=== PATIENT | female | born 1945 | race Caucasian/White ===

== ENCOUNTER 2019-09-25 16:17 | Observation (INO) | payer BC, MEDICARE, OTHER ==
[~2019-09-25] VITALS: Ht 170.2 cm; Wt 85.4 kg
--- NOTE | 2019-09-25 16:37 | NUR ---
bib by cynthia from [facility] half-way. She has been unable to care for basic needs and therfore sent here. Recently moved to area. Also recently dx with uti at [facility] Wheelchair bound x 15 years afebrile, vss, a+ox4 SW to bedside
[2019-09-25] MEDS ORDERED: CEFDINIR 300 MG CAPSULE PO ONE (17:00)
[2019-09-25] MEDS ORDERED: SODIUM CHLORIDE 0.9% 1,000 ML IV ONE (17:11)
--- NOTE | 2019-09-25 17:19 | NUR ---
RADIOLOGY AT BEDSIDE
[2019-09-25] MEDS ORDERED: SODIUM CHLORIDE FLUSH 10ML SYR IVF ONE (17:30)
[2019-09-25 17:55] LABS: ALANINE AMINOTRANSFERASE 21 U/L (12-78); ANION GAP 5 mmol/L (5-15); CALCIUM 8.3 mg/dL (8.5-10.1); CHLORIDE 111 mmol/L (98-107); CREATININE 1.04 mg/dL (0.55-1.02)
[2019-09-25 18:05] LABS: ALKALINE PHOSPHATASE 49 U/L (45-117); BILIRUBIN,TOTAL 0.2 mg/dL (0.2-1.0); TOTAL PROTEIN 6.7 g/dL (6.4-8.2)
--- NOTE | 2019-09-25 18:11 | NUR ---
clean catch ua obtained walked to lab piv placed provided [facility] dinner meal tray
[2019-09-25] MEDS ORDERED: CEFDINIR 300 MG CAPSULE ONE (18:17)
[2019-09-25 18:24] LABS: MICROSCOPIC INDICATED
[2019-09-25 18:51] LABS: BASOPHILS # (AUTO) 0.02 x10^3/uL (0-0.1); BASOPHILS % (AUTO) 0 % (0-1); EOSINOPHILS # (AUTO) 0.23 x10^3/uL (0-0.4); EOSINOPHILS % (AUTO) 3 % (1-7); LYMPHOCYTES # (AUTO) 1.69 x10^3/uL (1-3.4); LYMPHOCYTES % (AUTO) 19 % (22-44); MD NO; MEAN CORPUSCULAR HEMOGLOBIN 25.9 pg (27.0-34.8); MEAN CORPUSCULAR HGB CONC 31.6 g/dL (32.4-35.8); MEAN CORPUSCULAR VOLUME 81.8 fL (80-100); MEAN PLATELET VOLUME 10.1 fL (7.4-10.4); MONOCYTES # (AUTO) 0.57 x10^3/uL (0.2-0.8); MONOCYTES % (AUTO) 6 % (2-9); NEUTROPHILS # (AUTO) 6.41 x10^3/uL (1.8-6.8); NEUTROPHILS % (AUTO) 72 % (42-75); PLATELET COUNT 220 x10^3/uL (130-400); RED BLOOD COUNT 3.85 x10^6/uL (3.82-5.3); RED CELL DISTRIBUTION WIDTH 15.4 % (9.6-15.2)
[2019-09-25] MEDS ORDERED: NYST15CR TP (18:53)
[2019-09-25] MEDS ORDERED: DABI150C PO (18:53)
[2019-09-25] MEDS ORDERED: TROS20TA2 PO (18:53)
[2019-09-25] MEDS ORDERED: ALBU8.5H8 INH (18:53)
[2019-09-25] MEDS ORDERED: FLUT1DIS3 INH (18:53)
[2019-09-25] MEDS ORDERED: AMLO2.5T5 PO (18:53)
[2019-09-25] MEDS ORDERED: MELA5TAB14 PO (18:53)
[2019-09-25] MEDS ORDERED: TIOT18CA INH (18:53)
[2019-09-25] MEDS ORDERED: SODIUM CHLORIDE 0.9% 1,000 ML IV SCH (19:12)
[2019-09-25] MEDS ORDERED: TEMAZEPAM 15 MG CAPSULE PO PRN (19:30)
[2019-09-25] MEDS ORDERED: ONDANSETRON 2MG/ML, 2ML IVPush PRN (19:30)
[2019-09-25] MEDS ORDERED: ALBUTEROL SULFATE 2.5 MG/3 ML NPPB PRN (19:30)
[2019-09-25] MEDS ORDERED: METHOCARBAMOL 500 MG TABLET PO PRN (19:30)
[2019-09-25] MEDS ORDERED: hydrALAzine 20 MG/ML, 1ML IVPush PRN (19:30)
[2019-09-25] MEDS ORDERED: GUAIFENESIN/DM 200-20MG, 10ML UDC PO PRN (19:30)
[2019-09-25] MEDS ORDERED: morphine SULFATE 10 MG/ML, 1ML IVPush PRN (19:30)
[2019-09-25] MEDS ORDERED: ALBUTEROL HFA 90 MCG/SPRAY INH PRN (19:30)
[2019-09-25] MEDS ORDERED: DOCUSATE 100 MG CAPSULE PO PRN (19:30)
[2019-09-25] MEDS ORDERED: ASA/APAP/ CAFFEINE TABLET PO PRN (19:30)
[2019-09-25] MEDS ORDERED: ACETAMINOPHEN 325 MG TABLET PO PRN (19:30)
[2019-09-25] MEDS ORDERED: HYDROcodone/APAP 5/325 TABLET PO PRN (19:30)
[2019-09-25 19:33] VITALS: BP 133/83
[2019-09-25] MEDS: TEMPLATE NON-FORMULARY MED. (Trospium Chloride 20 MG) HOMEMEDPO SCH (21:00)
[2019-09-25] MEDS ORDERED: BUDESONIDE 0.5 MG/2 ML INHA NPPB SCH (21:00)
[2019-09-25] MEDS: FAMOTIDINE 20 MG TABLET PO SCH (21:00)
[2019-09-25] MEDS ORDERED: MELATONIN 5 MG TABLET PO SCH (21:00)
[2019-09-25] MEDS ORDERED: Imodium PO (21:39)
[2019-09-25] MEDS ORDERED: [UNRECOGNIZED DRUG - CODE] PO (21:39)
[2019-09-25] MEDS ORDERED: NAPR220T77 PO (21:39)
[2019-09-25] MEDS ORDERED: FAMOTIDINE 40 MG TABLET ONE (22:38)
[2019-09-25] MEDS: DABIGATRAN 150 MG CAPSULE PO SCH (22:53)
[2019-09-25] MEDS: NYSTATIN CRM 15GM TP SCH (22:54)
[2019-09-26 02:32] VITALS: BP 101/63
[2019-09-26] MEDS ORDERED: CEFDINIR 300 MG CAPSULE PO SCH (05:00)
[2019-09-26 05:08] LABS: ANION GAP 6 mmol/L (5-15); CHLORIDE 114 mmol/L (98-107)
[2019-09-26 05:36] LABS: CREATININE 0.82 mg/dL (0.55-1.02)
[2019-09-26 06:32] LABS: BASOPHILS # (AUTO) 0.01 x10^3/uL (0-0.1); BASOPHILS % (AUTO) 0 % (0-1); EOSINOPHILS % (AUTO) 3 % (1-7); LYMPHOCYTES # (AUTO) 1.47 x10^3/uL (1-3.4); LYMPHOCYTES % (AUTO) 24 % (22-44); MD NO; MEAN CORPUSCULAR HEMOGLOBIN 26.1 pg (27.0-34.8); MEAN CORPUSCULAR HGB CONC 31.5 g/dL (32.4-35.8); MEAN CORPUSCULAR VOLUME 82.8 fL (80-100); MEAN PLATELET VOLUME 8.6 fL (7.4-10.4); MONOCYTES # (AUTO) 0.45 x10^3/uL (0.2-0.8); MONOCYTES % (AUTO) 7 % (2-9); NEUTROPHILS # (AUTO) 4.12 x10^3/uL (1.8-6.8); NEUTROPHILS % (AUTO) 66 % (42-75); PLATELET COUNT 222 x10^3/uL (130-400); RED BLOOD COUNT 3.69 x10^6/uL (3.82-5.3); RED CELL DISTRIBUTION WIDTH 15.5 % (9.6-15.2)
[2019-09-26 07:24] VITALS: BP 127/80
[2019-09-26] MEDS ORDERED: ARNUITY HOMEINH SCH (09:00)
[2019-09-26] MEDS ORDERED: AMLODIPINE 2.5 MG TABLET PO SCH (09:00)
[2019-09-26] MEDS: TEMPLATE NON-FORMULARY MED. (Trospium Chloride 20 MG) HOMEMEDPO SCH (09:00)
[2019-09-26] MEDS: FAMOTIDINE 20 MG TABLET PO SCH (09:00)
[2019-09-26] MEDS ORDERED: TIOTROPIUM BROMIDE 18 MCG/INH INH SCH (09:00)
[2019-09-26] MEDS: ALBUTEROL HFA 90 MCG/SPRAY INH SCH ×2 (09:00→15:00)
[2019-09-26] MEDS ORDERED: FAMOTIDINE 40 MG TABLET ONE (10:16)
[2019-09-26] MEDS: DABIGATRAN 150 MG CAPSULE PO SCH (10:34)
[2019-09-26] MEDS: NYSTATIN CRM 15GM TP SCH (10:34)
[2019-09-26 13:52] VITALS: BP 138/83
[2019-09-26] MEDS ORDERED: CEFD300C37 PO (14:43)
== END 2019-09-26 17:00 | disposition home or self-care (01) ==
LOC: ED 18:02 → EDIP 18:03 → INTOOBSV 18:03 → EDIP 18:22 → UNDOADMIN 18:22 → ED 18:24 → 3N 19:09 → DCLOUNGE 09-26 16:50
PROVIDERS: ADMIT Internal Medicine; ATTEND Family Medicine
DX: R62.7 Adult failure to thrive (principal); N30.90 Cystitis, unspecified without hematuria; R60.0 Localized edema; N17.9 Acute kidney failure, unspecified; J44.9 Chronic obstructive pulmonary disease, unspecified; G89.29 Other chronic pain; M54.9 Dorsalgia, unspecified; H40.9 Unspecified glaucoma; J32.9 Chronic sinusitis, unspecified; E66.9 Obesity, unspecified; Z68.34 Body mass index [BMI] 34.0-34.9, adult; E88.09 Other disorders of plasma-protein metabolism, not elsewhere classified; D64.9 Anemia, unspecified; F17.210 Nicotine dependence, cigarettes, uncomplicated; Z86.718 Personal history of other venous thrombosis and embolism; Z63.8 Other specified problems related to primary support group; Z79.899 Other long term (current) drug therapy
CPT/HCPCS: 36415; 71045; 80048; 80053; 81001; 82607; 82728; 83036; 83540; 83550; 84443; 84466; 85025; 87086; 87186; 97163; 99284; G0378; J7030

== ENCOUNTER 2019-10-05 07:07 | Emergency (ER) | payer MEDICARE ==
[~2019-10-05] VITALS: Ht 170.2 cm; Wt 80.0 kg
[~2019-10-05 07:07] MED LIST: ALBU8.5H8 INH; AMLO2.5T5 PO; CEFD300C37 PO; DABI150C PO; FLUT1DIS3 INH; Imodium PO; MELA5TAB14 PO; NAPR220T77 PO; NYST15CR TP; TIOT18CA INH; TROS20TA2 PO; [UNRECOGNIZED DRUG - CODE] PO
--- NOTE | 2019-10-05 07:30 | NUR ---
PT HAS CO CHRONIC BACK PAIN. PT RECENTLY AT [facility] MULTIPLE TIMES PAST FEW DAYS TREATED FOR UTI. PT IS HOMELESS AND CALL EMS FREQUENTLY SHE DOES NOT HAVE A PLACE TO STAY. PT NEEDS RESOURCES, PER EMS SHE HAD A BED AT "[facility]" THOUGH PT HASNT FOLLOWED THROUGH. PT VSS. NO CO COUGH, SOB OR COUGH. AFEBRILE
[2019-10-05] MEDS ORDERED: KETOROLAC 30 MG/1 ML ONE (08:07)
[2019-10-05] MEDS ORDERED: KETOROLAC 30 MG/1 ML IM ONE ×2 (08:30)
--- NOTE | 2019-10-05 08:30 | NUR ---
PT RESTING, PT STATES SHE IS UNABLE TO STAY AT THE [facility] BECAUSE SHE CANNOT COMPLETE HER ADLS W OUT ASSISTANCE.
--- NOTE | 2019-10-05 10:09 | NUR ---
PT SLEEPING, ATE MEAL TRAY. VSS.
[2019-10-05 10:11] VITALS: BP 117/62
--- NOTE | 2019-10-05 11:52 | NUR ---
SW AT BEDSIDE
--- NOTE | 2019-10-05 13:24 | NUR ---
Patient/Caregiver given discharge instructions and they have confirmed that they understand the instructions. Patient ambulatory with steady gait.
== END 2019-10-05 13:25 | disposition home or self-care (01) ==
LOC: ED 08:17
DX: M48.56XA Collapsed vertebra, not elsewhere classified, lumbar region, initial encounter for fracture (principal); M47.896 Other spondylosis, lumbar region; J44.9 Chronic obstructive pulmonary disease, unspecified; G89.29 Other chronic pain; Z90.49 Acquired absence of other specified parts of digestive tract; Z90.89 Acquired absence of other organs; F17.210 Nicotine dependence, cigarettes, uncomplicated; X58.XXXA Exposure to other specified factors, initial encounter; Y93.89 Activity, other specified; Y92.89 Other specified places as the place of occurrence of the external cause; Y99.8 Other external cause status
CPT/HCPCS: 96372; 99283; J1885